=== PATIENT | female | born 1940 | race Caucasian/White ===

== ENCOUNTER 2016-09-17 15:42 | Emergency (ER) | payer OTHER ==
[~2016-09-17] VITALS: Ht 157.4 cm; Wt 77.1 kg
[~2016-09-17 15:42] MED LIST: ASPIRIN81 M1 PO; CANAGLIFLOZIN PO; CHOLESTYRAM4 GM/9 GM PO; CIPRO500 MG PO; FISH OIL500 MG PO; GLIPIZIDE10 M2 PO; GLYBURIDE AND M1 TA2 PO; ISOSORBIDE DINI30 MG PO; LANTUS100 U/ML SC; LISINOPRIL20 MG PO; LOPRESSOR50 M1 PO; LOVASTATIN20 MG PO; MERIBIN5 MG PO; METFORMIN500 MG PO; PHARMASSURE FO0.4 MG PO; SUPER B-50 COM1 EACH PO; TOPROL XL50 M1 PO; VISION VITAMIN1 EACH PO; ZOLOFT50 MG PO
[2016-09-17] MEDS ORDERED: NEURONTIN300 MG PO (15:49)
[2016-09-17] MEDS ORDERED: JANUVIA100 MG PO (15:50)
[2016-09-17] MEDS ORDERED: OYSTER SHELL C1 EAC3 PO (15:51)
[2016-09-17] MEDS ORDERED: LASIX40 MG PO (15:52)
[2016-09-17] MEDS ORDERED: PRESERVISION1 SGL PO (15:52)
[2016-09-17] MEDS ORDERED: ISOSORBIDE DINI30 MG PO (15:52)
[2016-09-17 16:29] LABS: BASO % 0.5 % (0.0-1.0); EOS # 0.2 10*3/uL (0.0-0.4); EOS % 3.5 % (1.0-4.0); HEMATOCRIT 33.5 % (37.0-47.0); HEMOGLOBIN 11.6 g/dl (12.0-16.0); LYMPH # 1.5 10*3/uL (1.3-4.4); LYMPH % 27.6 % (27.0-41.0); MEAN CELL VOLUME 90.8 fl (81.0-99.0); MEAN CORPUSCULAR HGB 31.4 pg (27.0-31.0); MEAN CORPUSCULAR HGB CONC 34.6 g/dl (33.0-37.0); MEAN PLATELET VOLUME 10.5 fl (9.6-12.3); MONO # 0.4 10*3/uL (0.1-1.0); MONO % 6.6 % (3.0-9.0); NEUT # 3.4 10*3/uL (2.3-7.9); NEUT % 61.3 % (47.0-73.0); PLATELET COUNT AUTOMATED 157 10*3/uL (130-400); RED BLOOD COUNT 3.69 10*6/uL (4.10-5.10); RED CELL DISTRI WIDTH 12.7 % (0-14.5); WHITE BLOOD COUNT 5.5 10*3/uL (4.8-10.8)
[2016-09-17 17:57] VITALS: BP 189/90
[2016-09-17] MEDS ORDERED: MOTION SICKNESS25 MG PO (18:04)
== END 2016-09-17 18:32 | disposition home or self-care (01) ==
LOC: ED 15:42
PROVIDERS: Emergency Medicine
DX: H83.02 Labyrinthitis, left ear (principal); Z90.49 Acquired absence of other specified parts of digestive tract; Z95.5 Presence of coronary angioplasty implant and graft; Z79.4 Long term (current) use of insulin; Z79.899 Other long term (current) drug therapy

== ENCOUNTER 2016-11-13 10:35 | Inpatient (IN) | payer OTHER ==
[~2016-11-13] VITALS: Ht 165.1 cm; Wt 80.1 kg
--- NOTE | ~2016-11-13 | PR ---
[place], [place] PROGRESS NOTE NAME: SOLITARIO BUSBY [facility] #: [id number] UNIT #: [id number] ROOM: 412 DOCTOR: DIXON DUBON MD BIRTHDATE: [birth year] DOS: 11/15/2016 SUBJECTIVE: The patient is feeling much better, does not have any complaints today. OBJECTIVE: VITAL SIGNS: Graphic trend shows a pressure 151/56, pulse is 67, respirations 20, temperature 97.4. LUNGS: Clear. HEART: Regular. ABDOMEN: Obese, soft. EXTREMITIES: Without any edema. LABORATORY DATA: Blood sugar was 120 this morning. Echocardiogram showed normal LV function. ASSESSMENT AND PLAN: 1. Type 2 diabetes mellitus, insulin-dependent, poorly controlled with hyperglycemia. 2. Acute kidney injury, possibly from dehydration. 3. Benign hypertension, controlled. The plan is to discharge her to home today. DIXON DUBON MD CM:PNTRANS 0823 1500 DIXON DUBON MD 11/15/16 1500 interface
--- NOTE | ~2016-11-13 | WRIGHTHP ---
[place], [place] PATIENT HISTORY AND PHYSICAL EXAM NAME: SOLITARIO BUSBY [facility] #: [id number] UNIT #: [id number] ROOM: 412 DOCTOR: DIXON DUBON MD BIRTHDATE: [birth year] DOS: 11/13/2016 HISTORY OF PRESENT ILLNESS: The patient is 75 years old, very well known to us. The patient states that about a week ago, she became extremely sick with a sore throat and cough, progressively got worse to the point that she lost her voice and her appetite became extremely poor and she has not been eating very much and has not been taking her medications regularly. The sore throat and her hoarse voice did get better, but her appetite continues to be on the poor side and her blood sugars started going up into the 500s. She also has had some urinary symptoms with increased frequency of urination and burning, but does not have any fever or chills, any chest pains, palpitations or shortness of breath. Finally, family forced her to the Emergency Room and they found out her blood sugar was 500 yesterday. PAST MEDICAL HISTORY: Significant for: 1. Type 2 diabetes mellitus, insulin-dependent. 2. Coronary artery disease with history of stent placement. 3. History of UTI hospitalization in 07/2015. 4. Benign hypertension. 5. History of back pain. 6. Mixed hyperlipidemia. MEDICATIONS ON ADMISSION: Folic acid 0.4 mg daily, Lasix 40 mg daily p.r.n., Isordil 30 daily, gabapentin 300 at bedtime, losartan 50 daily, Lopressor 50 daily, lovastatin 20 daily, meclizine 25 twice a day p.r.n. for dizziness, sertraline 50 daily, Januvia 100 daily, insulin Lantus subQ at 1800. SOCIAL HISTORY: Nonsmoker, does not use any alcohol. PHYSICAL EXAMINATION: GENERAL: She is awake and alert and oriented, quite tired looking this morning. VITAL SIGNS: Graphic trend shows that she is afebrile. Pressure is 150/62, pulse of 68, respirations 18, temperature 97.9, blood pressure on admission was 164/88. LUNGS: Diminished breath sounds. No wheezes, rales or rhonchi heard. HEART: Regular. ABDOMEN: Obese, soft, nontender. EXTREMITIES: Without any edema. LABORATORY DATA: Shows a urine which is positive for blood and bacteria, 3+ glucose, WBC count is 3.2, hemoglobin 13.2, hematocrit 38.2, platelets were 162. Glucose 446 on basic metabolic panel, BUN 25, creatinine 1.28, sodium 136, potassium 3.5, chloride 97, bicarbonate 27, magnesium 2.0. ASSESSMENT AND PLAN: 1. The patient who comes in with hyperglycemia, type 2 diabetes mellitus, poorly controlled with hyperosmolar state. IV fluids have been ordered, Lantus has been ordered. 2. Urinary tract infection. Urine culture has been sent. Blood cultures have been ordered. The patient appears to be neutropenic, most likely from [place], [place] PATIENT HISTORY AND PHYSICAL EXAM NAME: SOLITARIO BUSBY [facility] #: [id number] UNIT #: [id number] ROOM: [facility] DOCTOR: DIXON DUBON MD BIRTHDATE: [birth year] underlying infection. 3. Chronic renal failure from diabetic nephropathy with GFR 41, stage III B renal failure, will avoid metformin as well as possible reduction in the dose of the Januvia needs to be considered. Right now, we will increase the dose of the Lantus to better control the sugar. Once the blood cultures and urine cultures come back, the patient should be able to go home. DIXON DUBON MD CM:HISPHYS:PATIENT HISTORY AND PHYSICAL EXAMINATION [id number] 2 DIXON DUBON MD 11/14/16922 interface
--- NOTE | ~2016-11-13 | DS ---
[place], [place] DISCHARGE SUMMARY [facility] [id number] [facility] #: [id number] ROOM: 412 DOCTOR: DIXON DUBON MD BIRTHDATE: [birth year] DOS: 11/15/2016 HOSPITAL COURSE: The patient is very well known to us. The patient was admitted to the hospital with tiredness, weakness, extremely high blood sugars. Please see the H and P for details. The patient was admitted to [facility], was placed on IV fluids, IV antibiotics. Readjustments in medications were made. Metformin was discontinued because of rising creatinine. She developed acute kidney injury, possibly from poor p.o. intake for the last several days. IV fluids were given for that. Urinalysis was positive, but the culture was not sent. She was on Rocephin, which will be changed to Ceftin p.o. Once the medicines were changed, insulin dosage was adjusted, her blood sugars have come down and normalized. The plan therefore is to discharge her to home to be followed up as an outpatient. DISCHARGE DIAGNOSES: 1. Hyperglycemia. 2. Type 2 diabetes mellitus, poorly controlled. 3. Acute kidney injury from prerenal azotemia. 4. Mixed hyperlipidemia. 5. Benign hypertension. 6. Possible urinary tract infection. 7. Diabetic neuropathy. 8. Major depression, mild, recurrent. DISCHARGE MEDICATIONS: Metformin has been discontinued because a rising creatinine. Other medications: Lantus insulin which is increased to 25 units, Ceftin 250 twice daily for 5 days, sertraline 50 daily, gabapentin 300 at bedtime, Januvia 100 mg daily, calcium 500 daily, Isordil 30 daily, Lasix 40 daily p.r.n., PreserVision 1 capsule daily, meclizine 25 q. 6 hours p.r.n. for dizziness, Lopressor 50 daily, folic acid 0.4 daily, lovastatin 20 daily, losartan 50 daily. [place], [place] DISCHARGE SUMMARY NAME: SOLITARIO BUSBY UNIT #: [id number] ROOM: 412 DOCTOR: DIXON DUBON MD BIRTHDATE: [birth year] DIXON DUBON MD CM:WILL [id number] DIXON DUBON MD 11/15/16 1415 interface
[~2016-11-13 10:35] MED LIST changes: +JANUVIA100 MG PO; +LANTUS SOL100 UNIT/1 SQ; +LASIX40 MG PO; +MOTION SICKNESS25 MG PO; +NEURONTIN300 MG PO; +OYSTER SHELL C1 EAC3 PO; +PRESERVISION1 SGL PO
[2016-11-13 10:47] VITALS: BP 174/88
[2016-11-13 11:20] LABS: BASO % 0.9 % (0.0-1.0); EOS # 0.2 10*3/uL (0.0-0.4); EOS % 5.6 % (1.0-4.0); HEMATOCRIT 38.2 % (37.0-47.0); HEMOGLOBIN 13.2 g/dl (12.0-16.0); LYMPH # 1.2 10*3/uL (1.3-4.4); LYMPH % 36.3 % (27.0-41.0); MEAN CELL VOLUME 91.4 fl (81.0-99.0); MEAN CORPUSCULAR HGB 31.6 pg (27.0-31.0); MEAN CORPUSCULAR HGB CONC 34.6 g/dl (33.0-37.0); MEAN PLATELET VOLUME 10.6 fl (9.6-12.3); MONO # 0.4 10*3/uL (0.1-1.0); MONO % 11.8 % (3.0-9.0); NEUT # 1.5 10*3/uL (2.3-7.9); NEUT % 45.1 % (47.0-73.0); PLATELET COUNT AUTOMATED 162 10*3/uL (130-400); RED BLOOD COUNT 4.18 10*6/uL (4.10-5.10); RED CELL DISTRI WIDTH 12.7 % (0-14.5); WHITE BLOOD COUNT 3.2 10*3/uL (4.8-10.8)
[2016-11-13 11:29] LABS: BILIRUBIN NEGATIVE (NEGATIVE); BLOOD TRACE-INTACT (NEGATIVE); CLARITY CLOUDY (CLEAR); COLOR YELLOW (YELLOW); GLUCOSE 3+ (NEGATIVE); KETONE NEGATIVE (NEGATIVE); LEUKO ESTERASE NEGATIVE (NEGATIVE); NITRITE NEGATIVE (NEGATIVE); UROBILINOGEN 0.2 E.U./dl (0.2-1.0)
[2016-11-13 11:38] LABS: ALBUMIN 3.7 gm/dl (3.1-4.5); ALKALINE PHOSPHATASE 126 U/L (45-117); BUN 25 mg/dl (7-24); CHLORIDE 97 mmol/L (98-107); CREATININE 1.28 mg/dL (0.55-1.02); POTASSIUM 3.5 mmol/L (3.5-5.1); SGOT/AST 33 IU/L (3-35); SGPT/ALT 32 U/L (12-78); SODIUM 136 mmol/L (136-145); TOTAL PROTEIN 7.8 gm/dL (6.4-8.2)
[2016-11-13 11:42] LABS: TROPONIN I < 0.015 ng/ml (<0.045)
[2016-11-13 11:45] LABS: BACTERIA TRACE
[2016-11-13 12:51] VITALS: BP 184/88
[2016-11-13 13:15] VITALS: BP 171/83
[2016-11-13 13:29] VITALS: BP 171/83
--- NOTE | 2016-11-13 14:10 | NUR ---
Time: 1314 A 75 year old FEMALE admitted to under services of DIXON PEDRAZA MD. Pt. arrived via stretcher from ER. Chief complaint: JUST DOSENT FEEL WELL HALIE GRAHAM
[2016-11-13] MEDS ORDERED: Meclizine25 MG PO (14:18)
[2016-11-13] MEDS ORDERED: LOPRESSOR50 M1 PO (14:18)
[2016-11-13] MEDS ORDERED: COZAAR50 M1 PO (14:19)
[2016-11-13] MEDS ORDERED: PHARMASSURE FO0.4 MG PO (14:19)
[2016-11-13] MEDS ORDERED: LOVASTATIN20 MG PO (14:19)
--- NOTE | 2016-11-13 15:44 | NUR ---
Dr. Dennis was called cassi sykes were recieved. Stated she would address home meds in the morning.
[2016-11-13 16:00] VITALS: BP 164/75
[2016-11-13 20:00] VITALS: BP 123/58
--- NOTE | 2016-11-13 20:00 | NUR ---
PT RESTING IN BED. RESP-EASY AND REGULAR. IVF INFUSING WITH NO PROBLEM. NO C/O AT THIS TIME. CALL LIGHT IN REACH.
--- NOTE | 2016-11-13 21:45 | NUR ---
PT SITTING UP AT SIDE OF BED. RESP-EASY AND REGULAR. NO C/O AT THIS TIME. BSG-206, SEE EMAR. CALL LIGHT IN REACH.
[2016-11-14] VITALS: BP 150/62
--- NOTE | 2016-11-14 | NUR ---
PT RESTING IN BED. RESP-EASY AND REGULAR. IVF INFUSING WITH NO PROBLEM. NO C/O AT THIS TIME. CALL LIGHT IN REACH. SEE SHIFT ASSESSMENT.
--- NOTE | 2016-11-14 04:00 | NUR ---
SLEEPING IN BED. RESP-EASY AND REGULAR. CALL LIGHT IN REACH.
--- NOTE | 2016-11-14 06:00 | NUR ---
RESTING IN BED. BSG-157, SEE EMAR. NO C/O AT THIS TIME. IVF INFUSING WITH NO PROBLEM. CALL LIGHT IN REACH.
[2016-11-14 08:00] VITALS: BP 151/69
--- NOTE | 2016-11-14 08:00 | NUR ---
RESTING QUIETLY NO C/O NO DISTRESS NOTED. IV FLUIDS INFUSING. STATES SHE FEELS MUCH BETTER. SEE SHIFT ASSESSMENT.
--- NOTE | 2016-11-14 08:30 | NUR ---
Security Coordinator in to talk to patient. Patient states lives at HOME [address] with HER . There are 13 steps in the home. Physician: DR DUBON Pharmacy: [facility] health services: NONE Patient's level of ADLs: INDEPENDENT Patient has working utilities: YES DME: NONE Follow-up physician's appointment after d/c: PREFERS TO MAKE HER OWN APPT Does patient want to access PORTAL?: Discharge plan HOME. DORI AGUILAR DENIES ANY DC NEEDS
--- NOTE | 2016-11-14 11:51 | NUR ---
Received message through group social worker family would like to discuss living will. In to see patient, daughter at bedside. Explained the patient is a resident of [place] and unfortunately we do not have access to the [place] [facility]. I told her she could contact a board turner or possibly research [place] [facility] online. She stated she would look into it.
[2016-11-14 16:00] VITALS: BP 152/64
--- NOTE | 2016-11-14 19:30 | NUR ---
PATIENT SITTING ON SIDE OF BED WATCHING TV. NO NEEDS MADE. NO S/S OF DISTRESS. BED IN LOWEST POSITION, CALL LIGHT IN REACH
--- NOTE | 2016-11-14 22:20 | NUR ---
24 HR chart check completed.
--- NOTE | 2016-11-14 22:53 | NUR ---
PATIENT RESTING IN BED WITH NO S/S OF DISTRESS. RESPS EASY AND REGULAR. BED IN LOWEST POSITION, CALL LIGHT IN REACH
[2016-11-15] VITALS: BP 151/56
--- NOTE | 2016-11-15 02:27 | NUR ---
PATIENT RESTING WITH EYES CLOSED. NO S/S OF DISTRESS. RESPS EASY AND REGULAR. BED IN LOWEST POSITOIN, CALL LIGHT IN REACH
[2016-11-15 08:00] VITALS: BP 157/62
--- NOTE | 2016-11-15 08:00 | NUR ---
SITTING ON SIDE OF BED, NO C/O NO DISTRESS NOTED. DR DUBON VISITED. PT TO BE DISCHARGED TODAY. SEE SHIFT ASSESSMENT.
[2016-11-15] MEDS ORDERED: LEVEMIR100 UNIT/1 SC (08:24)
[2016-11-15] MEDS ORDERED: CEFUROXIME AXE250 MG PO (08:24)
--- NOTE | 2016-11-15 09:27 | NUR ---
DISCHARGED TO HOME WITH . INSTRUCTIONS AND PERSCRIPTIONS REVIEWED WITH PT.
== END 2016-11-15 09:27 | disposition home or self-care (01) | DRG 637 ==
LOC: ED 10:35 → EDHOLD 12:47 → 4E 12:47
PROVIDERS: Emergency Medicine; ADMIT Internal Medicine
DX: E11.65 Type 2 diabetes mellitus with hyperglycemia (principal); E11.00 Type 2 diabetes mellitus with hyperosmolarity without nonketotic hyperglycemic-hyperosmolar coma (NKHHC); N17.9 Acute kidney failure, unspecified; N39.0 Urinary tract infection, site not specified; F33.0 Major depressive disorder, recurrent, mild; E11.22 Type 2 diabetes mellitus with diabetic chronic kidney disease; I25.10 Atherosclerotic heart disease of native coronary artery without angina pectoris; E11.40 Type 2 diabetes mellitus with diabetic neuropathy, unspecified; E78.2 Mixed hyperlipidemia; I12.9 Hypertensive chronic kidney disease with stage 1 through stage 4 chronic kidney disease, or unspecified chronic kidney disease; N18.3 Chronic kidney disease, stage 3 (moderate); Z79.4 Long term (current) use of insulin; Z79.899 Other long term (current) drug therapy; Z90.710 Acquired absence of both cervix and uterus; Z82.3 Family history of stroke; Z82.49 Family history of ischemic heart disease and other diseases of the circulatory system; Z95.9 Presence of cardiac and vascular implant and graft, unspecified

== ENCOUNTER → 2017-11-28 | Outpatient (CLI) | payer MEDICARE ==
[~2017-11-28] MED LIST changes: +CEFUROXIME AXE250 MG PO; +COZAAR50 M1 PO; +LEVEMIR100 UNIT/1 SC; +Meclizine25 MG PO
== END | disposition home or self-care (01) ==
LOC: MAMMO 07:41
DX: Z12.31 Encounter for screening mammogram for malignant neoplasm of breast (principal); R92.1 Mammographic calcification found on diagnostic imaging of breast

== ENCOUNTER 2018-03-14 13:49 | Inpatient (IN) | payer MEDICARE ==
--- NOTE | ~2018-03-14 | DS ---
[place], [place] DISCHARGE SUMMARY NAME: SOLITARIO BUSBY [facility] #: [id number] UNIT #: [id number] ROOM: 504 DOCTOR: DIXON DUBON MD BIRTHDATE: [birth year] DOS: 03/16/2018 DIAGNOSES: 1. Acute kidney injury from dehydration and hypotension. 2. Diabetic nephropathy. 3. Benign hypertension. 4. Adult failure to thrive. 5. Type 2 diabetes mellitus, poorly controlled. 6. Mixed hyperlipidemia. 7. Major depression. 8. Possible urinary tract infection, urine culture not available at the time of discharge. MEDICATION ON DISCHARGE: Ceftin 250 twice daily for 5 days, sertraline 50 daily, gabapentin 300 at bedtime, calcium 500 mg daily, isosorbide 30 b.i.d., PreserVision 1 tablet daily, folic acid 0.4 mg daily, lovastatin 20 daily, losartan 50 daily, insulin glargine 30 units q.p.m., glipizide 10 b.i.d. Januvia 100 mg daily. HOSPITAL COURSE: The patient is 77 years old, comes in with increased weakness, tiredness, inability to eat, difficulty to ambulate. The patient's states that she has been sick for days prior to being seen in the office. She had increased frequency of urination, but did not seek help for that. She has history of multiple UTIs and diagnosed with possible sepsis and UTI and dehydration, was admitted. After admission, routine labs were done, it showed the patient did have acute kidney injury, possibly from poor p.o. intake and hypotension and ATN. Some of her antihypertensives were held and the patient was started on IV fluids. With IV fluids, the dehydration has improved. She has good urine output. Her energy has come back and she is able to ambulate to the bathroom without any problems. PT/OT did see her and did not feel that she would from therapy at home. Blood sugars are controlled in the low 200s now. Her hemoglobin A1c is extremely high, most likely from poor control as an outpatient. The patient is stable. The plan is to discharge her to home today, to follow up as an outpatient. Possibilities that she did have an underlying UTI, but unfortunately the urine culture was done late and so we do not have the results at the time of dictation. Antibiotics have, however, been ordered and will be continued as an outpatient. [place], [place] DISCHARGE SUMMARY NAME: SOLITARIO BUSBY UNIT #: [id number] ROOM: 504 DOCTOR: DIXON DUBON MD BIRTHDATE: [birth year] DIXON DUBON MD CM:DISCHARG [id number] DIXON DUBON MD 03/16/18 1328 interface
--- NOTE | ~2018-03-14 | PR ---
[place], [place] PROGRESS NOTE [facility] [id number] UN[facility] #: [id number] ROOM: 504 DOCTOR: DIXON DUBON MD BIRTHDATE: [birth year] DOS: SUBJECTIVE: The patient is feeling much better. She has more energy. Her appetite is improving. OBJECTIVE: VITAL SIGNS: Graphic trend shows a pressure of 150/61, pulse of 60, respirations 20, temperature 97.7. LUNGS: Clear. HEART: Regular. ABDOMEN: Obese, soft, nontender. EXTREMITIES: Without any edema. ASSESSMENT AND PLAN: 1. Adult failure to thrive, improved strength velasquez, malaise and has corrected, and PT states that she does not need any rehab. 2. Acute kidney injury, possibly from diabetic nephropathy. Avoid nephrotoxic agents. 3. Type 2 diabetes mellitus, poorly controlled. Blood sugars have improved. DIXON DUBON MD CM:PNTRANS [id number] DIXON DUBON MD 03/17/18 0555 interface
--- NOTE | ~2018-03-14 | WRIGHTHP ---
[place], [place] PATIENT HISTORY AND PHYSICAL EXAM NAME: SOLITARIO BUSBY [facility] #: [id number] UNIT #: [id number] ROOM: 504 DOCTOR: DIXON DUBON MD BIRTHDATE: [birth year] DOS: HISTORY OF PRESENT ILLNESS: The patient is 77 years old, very well known to us. The patient has been increasingly weak at home, unable to eat and unable to walk and was being confused as per the family members, so they brought her to the Emergency Room. Her blood sugars were poorly controlled in the 300s-400s. She denied having any chest pains or palpitations. Did have increased frequency of urination and dysuria, but did not have any fever or chills. She denies having any emesis, but she has been nauseous. PAST MEDICAL HISTORY: Significant for: 1. Last hospitalization in November 2016 with acute kidney injury. 2. Type 2 diabetes mellitus, poorly controlled. 3. Benign hypertension. 4. Mixed hyperlipidemia. 5. Major depression, mild, recurrent. 6. Diabetic neuropathy. 7. History of UTI. MEDICATIONS: She is currently on are Lantus 30 units, folic acid 0.4 mg, vitamin D with calcium 500 daily, gabapentin 300 at bedtime, glipizide 10 b.i.d., isosorbide 30 b.i.d., losartan 50 daily, lovastatin 20 daily, metoprolol 50 daily, sertraline 50 daily. SOCIAL HISTORY: Nonsmoker. Does not use any alcohol. PHYSICAL EXAMINATION: GENERAL: She is awake and alert, very listless and lethargic, tries to answer questions appropriately, but quite weak. VITAL SIGNS: Blood pressure is 166/90, pulse of 72, respirations 18, temperature 98.0. LUNGS: Diminished breath sounds. No wheezes, rales, rhonchi heard. HEART: Regular. ABDOMEN: Obese, soft, nontender. EXTREMITIES: Without any edema. ASSESSMENT AND PLAN: 1. Acute kidney injury resulting in from poor p.o. intake as well as hypotension and acute tubular necrosis. The patient is placed on IV fluids. We will hold off on antihypertensives. We will reevaluate and restart medications slowly. 2. Adult failure to thrive. The patient will be ordered PT/OT consultation and possible SNF placement. 3. Type 2 diabetes mellitus, insulin-dependent, poorly controlled. The patient will have blood sugars checked every 4 hours and coverage scale started, and depending on her blood sugar readings, we will restart medication. She does have a hemoglobin A1c, which is in the 9.2 range, which means that the sugars are uncontrolled, mostly from noncompliance and poor insight to medical problems. [place], [place] PATIENT HISTORY AND PHYSICAL EXAM NAME: SOLITARIO BUSBY UNIT #: [id number] ROOM: 504 DOCTOR: DIXON DUBON MD BIRTHDATE: [birth year] DIXON DUBON MD CM:HISPHYS:PATIENT HISTORY AND PHYSICAL EXAMINATION 0840 [id number] DIXON DUBON MD 03/16/18 0109 interface
[2018-03-14 14:20] VITALS: BP 155/67
--- NOTE | 2018-03-14 14:20 | NUR ---
A 77, admitted to , under the services of DIXON Pedraza MD with a diagnosis of UTI,SEPSIS. Chief complaint is GENERALIZED WEAKNESS. Patient arrived via wheel chair from [place]. Monitor applied. Initial assessment completed. Vital signs taken and recorded. DIXON PEDRAZA MD notified of admission to the unit. Orders received. See assessment for past medical history, medications and allergies. Patient and/or family oriented to unit. [facility] visitation policy reviewed. Clothing/patient valuable form completed. SHELBY TREJO
[2018-03-14 14:57] LABS: BASO % 0.6 % (0.0-1.0); EOS # 0.1 10*3/uL (0.0-0.4); HEMATOCRIT 41.1 % (37.0-47.0); HEMOGLOBIN 14.1 g/dl (12.0-16.0); LYMPH # 1.3 10*3/uL (1.3-4.4); LYMPH % 25.9 % (27.0-41.0); MEAN CELL VOLUME 89.2 fl (81.0-99.0); MEAN CORPUSCULAR HGB 30.6 pg (27.0-31.0); MEAN CORPUSCULAR HGB CONC 34.3 g/dl (33.0-37.0); MEAN PLATELET VOLUME 10.4 fl (9.6-12.3); MONO # 0.4 10*3/uL (0.1-1.0); MONO % 7.9 % (3.0-9.0); NEUT # 3.1 10*3/uL (2.3-7.9); NEUT % 63.4 % (47.0-73.0); PLATELET COUNT AUTOMATED 154 10*3/uL (130-400); RED BLOOD COUNT 4.61 10*6/uL (4.10-5.10); RED CELL DISTRI WIDTH 12.2 % (0-14.5)
[2018-03-14 15:25] LABS: ALBUMIN 3.9 gm/dl (3.1-4.5); CREATININE 1.27 mg/dL (0.55-1.02); POTASSIUM 3.8 mmol/L (3.5-5.1); TOTAL PROTEIN 8.2 gm/dL (6.4-8.2)
[2018-03-14 16:00] VITALS: BP 158/69
--- NOTE | 2018-03-14 16:35 | NUR ---
MEDS RECONCILED WITH PT AND MED CLAIM HISTORY.DR JAGDISH TEMPLETON.
[2018-03-14] MEDS ORDERED: GLIPIZIDE10 M2 PO (16:42)
[2018-03-14] MEDS ORDERED: LANTUS SOL100 UNIT/1 SC (16:42)
[2018-03-14] MEDS ORDERED: METOPROLOL SUCC50 M1 PO (16:43)
--- NOTE | 2018-03-14 18:20 | NUR ---
NOTIFIED DR DUBON OF LAB RESULTS,ORDERS RECIEVED.
[2018-03-14 20:00] VITALS: BP 166/90
[2018-03-15] VITALS: BP 125/63
[2018-03-15 06:41] LABS: CREATININE 1.15 mg/dL (0.55-1.02); POTASSIUM 3.4 mmol/L (3.5-5.1)
--- NOTE | 2018-03-15 09:00 | NUR ---
Town Planner in to talk to patient. Patient states lives at home with her . There are 13 steps in the home. Physician: Dr. Anastacia Dennis Pharmacy: [facility] [place] Home health services: none Patient's level of ADLs: INDEPENDENT Patient has working utilities: yes DME: none Follow-up physician's appointment after d/c: she prefers to make her own follow up appt after discharge Does patient want to access PORTAL?: no Discharge plan discussed with patient. She lives at home with her . She is independent in her ADLs and ambulation. Discussed home health care services and she denies any home needs at this time. When medically stable she will be discharged to home. RAMAN SIMMS
[2018-03-15 12:00] VITALS: BP 184/84
--- NOTE | 2018-03-15 14:20 | NUR ---
PHYSICAL THERAPY PAtient report she is 100 % (I) and requires no PT. Will d/c PT as patient requestes. Thank you for this referral. Laureen Albarran,PT
[2018-03-15 16:00] VITALS: BP 121/95
[2018-03-15 20:00] VITALS: BP 139/55
[2018-03-16] VITALS: BP 150/61
[2018-03-16 08:00] VITALS: BP 122/80
[2018-03-16 08:30] LABS: CREATININE 1.22 mg/dL (0.55-1.02)
[2018-03-16] MEDS ORDERED: CEFUROXIME AXE250 MG PO (08:44)
[2018-03-16] MEDS ORDERED: JANUVIA100 MG PO (08:44)
[2018-03-16 10:55] LABS: BILIRUBIN NEGATIVE (NEGATIVE); BLOOD NEGATIVE (NEGATIVE); CLARITY SL CLOUDY (CLEAR); COLOR YELLOW (YELLOW); GLUCOSE 1+ (NEGATIVE); KETONE NEGATIVE (NEGATIVE); LEUKO ESTERASE TRACE (NEGATIVE); NITRITE NEGATIVE (NEGATIVE); PH 5.5 (5.0-9.0); UROBILINOGEN 0.2 E.U./dl (0.2-1.0)
[2018-03-16 11:25] LABS: BACTERIA TRACE; WBC 21-30 wbc/hpf (0-5)
--- NOTE | 2018-03-16 11:34 | NUR ---
PT DISCHARGED AT THIS TIME. IV REMOVED AND PRESSURE DRESSING APPLIED. HEART MONITOR RETURNED TO FLOOR. VERBALIZED UNDERSTANDING OF DISCHARE INSTRUCTIONS.
== END 2018-03-16 11:35 | disposition home or self-care (01) | DRG 871 ==
LOC: 5E 13:49
PROVIDERS: ADMIT Internal Medicine
DX: A41.9 Sepsis, unspecified organism (principal); N17.0 Acute kidney failure with tubular necrosis; I95.9 Hypotension, unspecified; N39.0 Urinary tract infection, site not specified; E11.65 Type 2 diabetes mellitus with hyperglycemia; R62.7 Adult failure to thrive; I10 Essential (primary) hypertension; F32.9 Major depressive disorder, single episode, unspecified; E78.2 Mixed hyperlipidemia; E86.0 Dehydration; E11.40 Type 2 diabetes mellitus with diabetic neuropathy, unspecified; Z87.440 Personal history of urinary (tract) infections

== ENCOUNTER → 2018-09-25 | Outpatient (CLI) | payer MEDICARE ==
[~2018-09-25] MED LIST changes: +LANTUS SOL100 UNIT/1 SC; +METOPROLOL SUCC50 M1 PO
== END | disposition home or self-care (01) ==
LOC: US 11:46
DX: I70.293 Other atherosclerosis of native arteries of extremities, bilateral legs (principal); I10 Essential (primary) hypertension; E11.9 Type 2 diabetes mellitus without complications

== ENCOUNTER 2018-12-04 01:56 | Emergency (ER) | payer MEDICARE ==
[~2018-12-04] VITALS: Ht 157.4 cm; Wt 78.0 kg
[2018-12-04 01:57] VITALS: BP 185/78
== END 2018-12-04 04:21 | disposition home or self-care (01) ==
LOC: ED 01:56
DX: I83.892 Varicose veins of left lower extremity with other complications (principal); E11.9 Type 2 diabetes mellitus without complications; K21.9 Gastro-esophageal reflux disease without esophagitis; I25.10 Atherosclerotic heart disease of native coronary artery without angina pectoris; I10 Essential (primary) hypertension; Z79.4 Long term (current) use of insulin; Z79.899 Other long term (current) drug therapy

== ENCOUNTER 2019-05-24 14:28 | Inpatient (IN) | payer OTHER ==
[~2019-05-24] VITALS: Ht 157.4 cm; Wt 81.4 kg
[2019-05-24 09:00] VITALS: BP 146/78
[2019-05-24 14:34] VITALS: BP 152/67
[2019-05-24 15:06] LABS: BASO % 0.8 % (0.0-1.0); EOS # 0.2 10*3/uL (0.0-0.4); EOS % 2.9 % (1.0-4.0); HEMATOCRIT 37.3 % (37.0-47.0); LYMPH # 1.2 10*3/uL (1.3-4.4); LYMPH % 23.4 % (27.0-41.0); MEAN CELL VOLUME 88.2 fl (81.0-99.0); MEAN CORPUSCULAR HGB 30.7 pg (27.0-31.0); MEAN CORPUSCULAR HGB CONC 34.9 g/dl (33.0-37.0); MEAN PLATELET VOLUME 10.9 fl (9.6-12.3); MONO # 0.4 10*3/uL (0.1-1.0); MONO % 7.9 % (3.0-9.0); NEUT # 3.4 10*3/uL (2.3-7.9); NEUT % 64.6 % (47.0-73.0); PLATELET COUNT AUTOMATED 150 10*3/uL (130-400); RED BLOOD COUNT 4.23 10*6/uL (4.10-5.10); RED CELL DISTRI WIDTH 12.5 % (0-14.5); WHITE BLOOD COUNT 5.2 10*3/uL (4.8-10.8)
[2019-05-24 15:17] LABS: ACT PARTIAL THROMBO TIME 27.3 SECONDS (20.0-32.1)
--- NOTE | 2019-05-24 15:18 | NUR ---
THE PT WAS GIVEN A SPECIMAN CUP FOR A URINE SAMPLE
[2019-05-24 15:22] LABS: ALBUMIN 3.5 gm/dl (3.1-4.5); ALKALINE PHOSPHATASE 116 U/L (45-117); BUN 40 mg/dl (7-24); CHLORIDE 101 mmol/L (98-107); POTASSIUM 4.8 mmol/L (3.5-5.1); SGOT/AST 15 IU/L (3-35); SGPT/ALT 23 U/L (12-78); SODIUM 133 mmol/L (136-145); TOTAL PROTEIN 6.9 gm/dL (6.4-8.2)
[2019-05-24 15:25] LABS: TROPONIN I < 0.015 ng/ml (<0.045)
[2019-05-24 16:04] LABS: CLARITY SL CLOUDY (CLEAR); COLOR YELLOW (YELLOW)
[2019-05-24 16:05] LABS: BILIRUBIN NEGATIVE (NEGATIVE); BLOOD NEGATIVE (NEGATIVE); GLUCOSE 3+ (NEGATIVE); KETONE NEGATIVE (NEGATIVE); LEUKO ESTERASE TRACE (NEGATIVE); NITRITE POSITIVE (NEGATIVE); SPECIFIC GRAVITY 1.015 (1.005-1.030); UROBILINOGEN 0.2 E.U./dl (0.2-1.0)
[2019-05-24 16:06] LABS: WBC 41-50 wbc/hpf (0-5)
[2019-05-24 16:07] LABS: BACTERIA 3+
--- NOTE | 2019-05-24 17:49 | NUR ---
I CALLED TO GIVE REPORT BUT THE PHONE WENT UNANSWERED
--- NOTE | 2019-05-24 17:50 | NUR ---
THE RECIEVING NURSE IMMEDIATLEY RETURN THE CALL
[2019-05-24 18:00] VITALS: BP 176/59
--- NOTE | 2019-05-24 18:00 | NUR ---
A 78, admitted to 5E, under the services of DIXON Pedraza MD with a diagnosis of UTI AND HYPERGLYCEMIA. Chief complaint is SHORTNESS OF BREATH. Patient arrived via wheel chair from ER. Monitor applied. Initial assessment completed. Vital signs taken and recorded. DIXON PEDRAZA MD notified of admission to the unit. Orders received. See assessment for past medical history, medications and allergies. Patient and/or family oriented to unit. [facility] visitation policy reviewed. Clothing/patient valuable form completed. EVI DILLON
[2019-05-24] MEDS ORDERED: CLOPIDOGREL75 MG PO (18:27)
[2019-05-24] MEDS ORDERED: Synthroid,Levo25 MCG PO (18:28)
[2019-05-24] MEDS ORDERED: OXYBUTYNIN5 MG PO (18:28)
[2019-05-24] MEDS ORDERED: MECLIZINE HYD12.5 MG PO (18:29)
[2019-05-24] MEDS ORDERED: TRADJENTA5 M1 PO (18:29)
--- NOTE | 2019-05-24 18:30 | NUR ---
MED REC UPDATED PER PT.
[2019-05-24 18:32] VITALS: BP 162/78
--- NOTE | 2019-05-24 19:01 | NUR ---
BLOOD SUGAR 340 AT THIS TIME.
--- NOTE | 2019-05-24 19:53 | NUR ---
OBTAINED ADMISSION ORDERS FROM DR DUBON.
[2019-05-24 20:00] VITALS: BP 172/79
--- NOTE | 2019-05-24 20:09 | NUR ---
EXPLAINED TO PT. THAT DR. DUBON ORDER HER IV FLUIDS & THAT HER BLOOD SUGAR WOULD BE CHECKED EVERY 6 HOURS; PT. VERBALIZED UNDERSTANDING. ASKING FOR SOMETHING TO EAT. TOOK PATIENT BOX LUNCH & WATER. CALL LIGHT WITHIN REACH; NO DISTRESS NOTED.
--- NOTE | 2019-05-24 23:41 | NUR ---
BLOOD SUGAR 378; COVERAGE PER EMAR.
[2019-05-25] VITALS: BP 166/64
[2019-05-25 06:16] LABS: BASO % 0.7 % (0.0-1.0); EOS # 0.2 10*3/uL (0.0-0.4); EOS % 3.8 % (1.0-4.0); HEMOGLOBIN 12.8 g/dl (12.0-16.0); LYMPH # 1.8 10*3/uL (1.3-4.4); LYMPH % 32.9 % (27.0-41.0); MEAN CELL VOLUME 88.6 fl (81.0-99.0); MEAN CORPUSCULAR HGB 29.8 pg (27.0-31.0); MEAN CORPUSCULAR HGB CONC 33.7 g/dl (33.0-37.0); MEAN PLATELET VOLUME 11.2 fl (9.6-12.3); MONO # 0.4 10*3/uL (0.1-1.0); MONO % 7.5 % (3.0-9.0); NEUT % 54.9 % (47.0-73.0); PLATELET COUNT AUTOMATED 157 10*3/uL (130-400); RED BLOOD COUNT 4.29 10*6/uL (4.10-5.10); RED CELL DISTRI WIDTH 12.7 % (0-14.5); WHITE BLOOD COUNT 5.5 10*3/uL (4.8-10.8)
--- NOTE | 2019-05-25 06:30 | NUR ---
BLOOD SUGAR 218; COVERAGE PER EMAR.
[2019-05-25 06:43] LABS: CREATININE 1.29 mg/dL (0.55-1.02); POTASSIUM 4.2 mmol/L (3.5-5.1)
--- NOTE | 2019-05-25 07:00 | NUR ---
ASSUMED CARE FOR PT AT THIS TIME. PT SITTING ON THE SIDE OF HER BED. NO COMPLAINTS AT THIS TIME. RESPS EASY AND REGULAR. ASSESSMENT COMPLETE. CALL LIGHT WITHIN REACH. WILL CONTINUE TO MONITOR.
[2019-05-25 08:00] VITALS: BP 164/74
--- NOTE | 2019-05-25 08:20 | NUR ---
LOSARTAN AND METOPROLOL GIVEN EARLY DUE TO BP 164/74. WILL RECHECK.
[2019-05-25 09:08] LABS: BILIRUBIN NEGATIVE (NEGATIVE); BLOOD 1+ (NEGATIVE); CLARITY SL CLOUDY (CLEAR); COLOR YELLOW (YELLOW); GLUCOSE 3+ (NEGATIVE); KETONE NEGATIVE (NEGATIVE); LEUKO ESTERASE 2+ (NEGATIVE); NITRITE NEGATIVE (NEGATIVE); SPECIFIC GRAVITY 1.025 (1.005-1.030); UROBILINOGEN 0.2 E.U./dl (0.2-1.0); WBC 41-50 wbc/hpf (0-5)
[2019-05-25 09:09] LABS: BACTERIA TRACE; MUCOUS TRACE
[2019-05-25 12:00] VITALS: BP 120/57
[2019-05-25 16:00] VITALS: BP 135/45
[2019-05-25 20:00] VITALS: BP 141/52
--- NOTE | 2019-05-25 20:16 | NUR ---
24 HR chart check completed.
--- NOTE | 2019-05-25 20:45 | NUR ---
RESTING IN BED WITH NO ACUTE DISTRESS NOTED. RESPIRATIONS EASY. LUNGS DIMINISHED, CLEAR. PULSE OX 96% RA. DENIES DYSURIA. CALL LIGHT WITHIN REACH. NO VOICED COMPLAINTS
[2019-05-26] VITALS: BP 152/51
--- NOTE | 2019-05-26 | NUR ---
SLEEPING. NO S/S DISTRESS. RESPIRATIONS EASY. VSS. CALL LIGHT WITHIN REACH
--- NOTE | 2019-05-26 06:00 | NUR ---
slept throughout night with no distress noted. respirations easy. call light within reach. no voiced complaints this shift
[2019-05-26 08:00] VITALS: BP 161/65
--- NOTE | 2019-05-26 09:00 | NUR ---
Assembly Worker in to talk to patient. Patient states lives at home with her . There are 20 steps in the home. Physician: Dr. Anastacia Dennis Pharmacy: [facility] Home health services: none Patient's level of ADLs: INDEPENDENT Patient has working utilities: yes DME: none Follow-up physician's appointment after d/c: she prefers to make her own follow up appt after discharge Does patient want to access PORTAL?: no Discharge plan discussed with patient. She is sitting on the edge of her bed without distress noted. She lives at home with her . She is independent in her ADLs and ambulation. Discussed home health care services and she denies any home needs. When medically stable she will be discharged to home. She states her will provide transportation on discharge. RAMAN SIMMS
[2019-05-26 12:00] VITALS: BP 163/49
[2019-05-26 16:00] VITALS: BP 136/78
--- NOTE | 2019-05-26 19:20 | NUR ---
24 HR chart check completed.
[2019-05-26 20:00] VITALS: BP 131/46
--- NOTE | 2019-05-26 21:00 | NUR ---
RESTING IN BED WITH NO DISTRESS NOTED. RESPIRATIONS EASY. LUNGS DIMINISHED, CLEAR. PULSE OX 95% RA. CALL LIGHT WITHIN REACH. NO VOICED COMPLAINTS
[2019-05-27] VITALS: BP 146/55
--- NOTE | 2019-05-27 | NUR ---
SLEEPING, AWAKENS EASILY. RESPIRATIONS EASY. VSS. CALL LIGHT WITHIN REACH. NO VOICED COMPLAINTS
--- NOTE | 2019-05-27 06:00 | NUR ---
SLEPT THROUGHOUT NIGHT WITH NO DISTRESS NOTED. RESPIRATIONS EASY. CALL LIGHT WITHIN REACH. NO VOICED COMPLAINTS THIS SHIFT
[2019-05-27 07:13] LABS: BASO % 0.8 % (0.0-1.0); EOS # 0.2 10*3/uL (0.0-0.4); EOS % 4.8 % (1.0-4.0); HEMATOCRIT 34.3 % (37.0-47.0); HEMOGLOBIN 11.4 g/dl (12.0-16.0); LYMPH # 1.8 10*3/uL (1.3-4.4); MEAN CELL VOLUME 90.5 fl (81.0-99.0); MEAN CORPUSCULAR HGB 30.1 pg (27.0-31.0); MEAN CORPUSCULAR HGB CONC 33.2 g/dl (33.0-37.0); MEAN PLATELET VOLUME 11.3 fl (9.6-12.3); MONO # 0.5 10*3/uL (0.1-1.0); MONO % 10.9 % (3.0-9.0); NEUT # 2.2 10*3/uL (2.3-7.9); NEUT % 46.1 % (47.0-73.0); PLATELET COUNT AUTOMATED 140 10*3/uL (130-400); RED BLOOD COUNT 3.79 10*6/uL (4.10-5.10); RED CELL DISTRI WIDTH 12.8 % (0-14.5); WHITE BLOOD COUNT 4.8 10*3/uL (4.8-10.8)
[2019-05-27 07:48] LABS: POTASSIUM 3.9 mmol/L (3.5-5.1)
[2019-05-27 07:49] LABS: CREATININE 1.17 mg/dL (0.55-1.02)
[2019-05-27 08:00] VITALS: BP 163/63
[2019-05-27] MEDS ORDERED: Lantus SC (08:29)
[2019-05-27] MEDS ORDERED: CEFUROXIME AXE250 MG PO (08:30)
--- NOTE | 2019-05-27 09:00 | NUR ---
Lapel Padder in to see patient. She is sitting on the edge of her bed eating breakfast without distress noted. She states she is getting to go home today. Discussed any home needs and she denies any. She is awaiting her discharge paperwork.
--- NOTE | 2019-05-27 10:10 | NUR ---
DC TO HOME
== END 2019-05-27 10:10 | disposition home or self-care (01) | DRG 682 ==
LOC: ED 14:28 → 4E 16:59 → EDHOLD 16:59 → 5E 17:30 → 4E 05-25 19:24
PROVIDERS: Physician Assistant; ADMIT Internal Medicine
DX: N17.0 Acute kidney failure with tubular necrosis (principal); E11.00 Type 2 diabetes mellitus with hyperosmolarity without nonketotic hyperglycemic-hyperosmolar coma (NKHHC); N39.0 Urinary tract infection, site not specified; F32.0 Major depressive disorder, single episode, mild; E11.65 Type 2 diabetes mellitus with hyperglycemia; I12.9 Hypertensive chronic kidney disease with stage 1 through stage 4 chronic kidney disease, or unspecified chronic kidney disease; N18.9 Chronic kidney disease, unspecified; E11.22 Type 2 diabetes mellitus with diabetic chronic kidney disease; B96.1 Klebsiella pneumoniae [K. pneumoniae] as the cause of diseases classified elsewhere; R62.7 Adult failure to thrive; E78.2 Mixed hyperlipidemia; Z87.01 Personal history of pneumonia (recurrent); Z90.710 Acquired absence of both cervix and uterus; Z90.49 Acquired absence of other specified parts of digestive tract; Z95.5 Presence of coronary angioplasty implant and graft; Z82.49 Family history of ischemic heart disease and other diseases of the circulatory system; Z82.3 Family history of stroke; Z68.32 Body mass index [BMI] 32.0-32.9, adult

== ENCOUNTER → 2019-09-23 | Outpatient (CLI) | payer OTHER ==
[~2019-09-23] MED LIST changes: +CLOPIDOGREL75 MG PO; +Lantus SC; +MECLIZINE HYD12.5 MG PO; +OXYBUTYNIN5 MG PO; +Synthroid,Levo25 MCG PO; +TRADJENTA5 M1 PO
[2019-09-23 08:31] LABS: BASO % 0.9 % (0.0-1.0); EOS # 0.3 10*3/uL (0.0-0.4); EOS % 5.4 % (1.0-4.0); HEMATOCRIT 35.2 % (37.0-47.0); LYMPH # 1.3 10*3/uL (1.3-4.4); LYMPH % 28.1 % (27.0-41.0); MEAN CELL VOLUME 91.9 fl (81.0-99.0); MEAN CORPUSCULAR HGB CONC 32.7 g/dl (33.0-37.0); MEAN PLATELET VOLUME 10.8 fl (9.6-12.3); MONO # 0.5 10*3/uL (0.1-1.0); MONO % 10.7 % (3.0-9.0); NEUT # 2.6 10*3/uL (2.3-7.9); NEUT % 54.7 % (47.0-73.0); PLATELET COUNT AUTOMATED 141 10*3/uL (130-400); RED BLOOD COUNT 3.83 10*6/uL (4.10-5.10); RED CELL DISTRI WIDTH 12.8 % (0-14.5); WHITE BLOOD COUNT 4.7 10*3/uL (4.8-10.8)
[2019-09-23 08:51] LABS: ALBUMIN 3.6 gm/dl (3.1-4.5); CREATININE 1.31 mg/dL (0.55-1.02); POTASSIUM 4.4 mmol/L (3.5-5.1); TOTAL PROTEIN 7.2 gm/dL (6.4-8.2)
[2019-09-23 08:56] LABS: THYROID STIM HORMONE (HS) 2.94 uIU/ml (0.358-4.75)
== END | disposition home or self-care (01) ==
LOC: CT 07:32
PROVIDERS: Internal Medicine
DX: Z00.00 Encounter for general adult medical examination without abnormal findings (principal); I10 Essential (primary) hypertension; E55.9 Vitamin D deficiency, unspecified; R16.1 Splenomegaly, not elsewhere classified; N28.1 Cyst of kidney, acquired; N20.0 Calculus of kidney; I70.0 Atherosclerosis of aorta; K57.90 Diverticulosis of intestine, part unspecified, without perforation or abscess without bleeding; K42.9 Umbilical hernia without obstruction or gangrene; M47.814 Spondylosis without myelopathy or radiculopathy, thoracic region; M47.816 Spondylosis without myelopathy or radiculopathy, lumbar region; Z90.49 Acquired absence of other specified parts of digestive tract; Z90.710 Acquired absence of both cervix and uterus

== ENCOUNTER 2019-10-11 10:38 | Emergency (ER) | payer OTHER ==
[~2019-10-11] VITALS: Ht 157.4 cm; Wt 77.1 kg
[2019-10-11 10:45] VITALS: BP 108/81
== END 2019-10-11 13:28 | disposition home or self-care (01) ==
LOC: ED 10:38
DX: S39.012A Strain of muscle, fascia and tendon of lower back, initial encounter (principal); I10 Essential (primary) hypertension; I25.10 Atherosclerotic heart disease of native coronary artery without angina pectoris; K21.9 Gastro-esophageal reflux disease without esophagitis; E11.9 Type 2 diabetes mellitus without complications; Z79.4 Long term (current) use of insulin; Z79.899 Other long term (current) drug therapy; X58.XXXA Exposure to other specified factors, initial encounter; Y93.89 Activity, other specified; Y92.89 Other specified places as the place of occurrence of the external cause; Y99.8 Other external cause status

== ENCOUNTER → 2019-10-16 | Outpatient (CLI) | payer OTHER | END | disposition home or self-care (01) | LOC: RAD 12:55 | DX: M54.6 Pain in thoracic spine (principal) ==

== ENCOUNTER 2019-10-24 02:32 | Emergency (ER) | payer OTHER ==
[~2019-10-24] VITALS: Ht 160 cm; Wt 77.1 kg
[2019-10-24 06:49] VITALS: BP 131/54
== END 2019-10-24 07:20 | disposition home or self-care (01) ==
LOC: ED 02:32
DX: S29.012A Strain of muscle and tendon of back wall of thorax, initial encounter (principal); Z79.899 Other long term (current) drug therapy; W18.39XA Other fall on same level, initial encounter; Y93.89 Activity, other specified; Y92.89 Other specified places as the place of occurrence of the external cause; Y99.8 Other external cause status

== ENCOUNTER 2019-10-24 15:39 | Emergency (ER) | payer OTHER ==
[2019-10-24 17:23] VITALS: BP 138/74
== END 2019-10-24 18:00 | disposition short-term general hospital (02) ==
LOC: ED 15:39
DX: S22.000A Wedge compression fracture of unspecified thoracic vertebra, initial encounter for closed fracture (principal); I25.10 Atherosclerotic heart disease of native coronary artery without angina pectoris; I10 Essential (primary) hypertension; K21.9 Gastro-esophageal reflux disease without esophagitis; E11.9 Type 2 diabetes mellitus without complications; Z79.899 Other long term (current) drug therapy; X58.XXXA Exposure to other specified factors, initial encounter; Y93.89 Activity, other specified; Y92.89 Other specified places as the place of occurrence of the external cause; Y99.8 Other external cause status

== ENCOUNTER 2019-11-25 11:10 | Observation (INO) | payer OTHER ==
[~2019-11-25] VITALS: Ht 157.4 cm; Wt 73.9 kg
[2019-11-25 11:18] VITALS: BP 140/80
[2019-11-25 13:24] LABS: BASO % 0.3 % (0.0-1.0); EOS % 0.6 % (1.0-4.0); HEMATOCRIT 34.4 % (37.0-47.0); LYMPH # 0.9 10*3/uL (1.3-4.4); LYMPH % 25.3 % (27.0-41.0); MEAN CELL VOLUME 89.1 fl (81.0-99.0); MEAN CORPUSCULAR HGB 29.8 pg (27.0-31.0); MEAN CORPUSCULAR HGB CONC 33.4 g/dl (33.0-37.0); MEAN PLATELET VOLUME 10.5 fl (9.6-12.3); MONO # 0.5 10*3/uL (0.1-1.0); NEUT % 59.2 % (47.0-73.0); PLATELET COUNT AUTOMATED 89 10*3/uL (130-400); RED BLOOD COUNT 3.86 10*6/uL (4.10-5.10); RED CELL DISTRI WIDTH 13.5 % (0-14.5); WHITE BLOOD COUNT 3.4 10*3/uL (4.8-10.8)
[2019-11-25 13:38] LABS: ALBUMIN 3.4 gm/dl (3.1-4.5); CREATININE 1.72 mg/dL (0.55-1.02); POTASSIUM 4.5 mmol/L (3.5-5.1); TOTAL PROTEIN 7.4 gm/dL (6.4-8.2)
[2019-11-25 14:26] LABS: BILIRUBIN NEGATIVE; BLOOD 3+ (NEGATIVE); CLARITY CLOUDY (CLEAR); COLOR YELLOW (YELLOW); GLUCOSE NEGATIVE; KETONE NEGATIVE; NITRITE POSITIVE (NEGATIVE); SPECIFIC GRAVITY 1.015 (1.001-1.030)
[2019-11-25 14:27] LABS: BACTERIA 4+; LEUKO ESTERASE 2+ (NEGATIVE); RBC TNTC rbc/hpf (0-2); WBC 41-50 wbc/hpf (0-5)
--- NOTE | 2019-11-25 16:10 | NUR ---
Time: 1609 A 78 year old FEMALE admitted to 5E under services of DR. JAGDISH EVANS,DIXON. Pt. arrived via stretcher from ER. Chief complaint: N/V, COUGH. LYNDSEY KELLEY
[2019-11-25] MEDS ORDERED: LANTUS SOL100 UNIT/1 SQ (17:41)
[2019-11-25 18:00] VITALS: BP 177/65
[2019-11-25 20:00] VITALS: BP 133/75
--- NOTE | 2019-11-25 22:48 | NUR ---
DR BERNAL CALLED AND NOTIFIED OF PT C/O BACK PAIN AND REQUESTING TYLENOL. NEW ORDERS REC'D.
--- NOTE | 2019-11-25 22:57 | NUR ---
PATIENT STATES THAT SHE IS HAVING NAUSEA AT THIS TIME AND WOULD NOT LIKE TO TAKE ANY TYLENOL IN FEAR THAT SHE MAY THROW IT UP. DENYING NEED FOR ZOFRAN. WILL REASSESS.
[2019-11-26] VITALS: BP 142/56
--- NOTE | 2019-11-26 | NUR ---
PATIENT STATES SHE IS FEELING BETTER AT THIS TIME & HAS NO COMPLAINTS AND NO NEEDS. BED IN LOW, LOCKED POS, CALL LIGHT WITHIN REACH.
--- NOTE | 2019-11-26 02:02 | NUR ---
PATIENT SLEEPING, NO S/S DISTRESS, RESPS EASY AND NONLABORED ON ROOM AIR. BED IN LOWEST, LOCKED POS, CALL LIGHT IN REACH
--- NOTE | 2019-11-26 05:54 | NUR ---
TYLENOL GIVEN PER REQUEST FOR C/O BACK PAIN
[2019-11-26 05:56] LABS: CREATININE 1.24 mg/dL (0.55-1.02); POTASSIUM 3.7 mmol/L (3.5-5.1)
[2019-11-26 06:47] LABS: EOS % 0.7 % (1.0-4.0); HEMATOCRIT 32.6 % (37.0-47.0); LYMPH % 33.9 % (27.0-41.0); MEAN CELL VOLUME 91.6 fl (81.0-99.0); MEAN CORPUSCULAR HGB 29.8 pg (27.0-31.0); MEAN CORPUSCULAR HGB CONC 32.5 g/dl (33.0-37.0); MEAN PLATELET VOLUME 11.7 fl (9.6-12.3); MONO # 0.4 10*3/uL (0.1-1.0); MONO % 12.2 % (3.0-9.0); NEUT # 1.5 10*3/uL (2.3-7.9); NEUT % 52.5 % (47.0-73.0); PLATELET COUNT AUTOMATED 94 10*3/uL (130-400); RED BLOOD COUNT 3.56 10*6/uL (4.10-5.10); RED CELL DISTRI WIDTH 13.4 % (0-14.5); WHITE BLOOD COUNT 2.9 10*3/uL (4.8-10.8)
[2019-11-26 08:00] VITALS: BP 135/57
--- NOTE | 2019-11-26 08:22 | NUR ---
PHYSICAL THERAPY PT screen received, Pt from home admitted with UTI. Please contact PT if patient has functional decline below baseline. Alex Durán SPT Fiona Pradhan PT
--- NOTE | 2019-11-26 08:24 | NUR ---
Nursing screen received and chart reviewed. Patient admitted for UTI. If patient has a decline in ADLs, transfers, or functional mobility, please send OT orders. Thank you. Christine Stewart, OTR/L
--- NOTE | 2019-11-26 08:27 | NUR ---
PT RESTING IN BED. NO DISTRESS NOTED. WILL MONITOR
--- NOTE | 2019-11-26 08:30 | NUR ---
Instructor Dancing in to talk to patient. Patient states lives at home with her and their family checking in on them. There are 13 steps in the home. Physician: Dr. Anastacia Dennis [facility]acy: [facility] Home health services: none Patient's level of ADLs: minimal assistance Patient has working utilities: yes DME: cane Follow-up physician's appointment after d/c: she prefers to make her own follow up appt after discharge Does patient want to access PORTAL?: no Discharge plan discussed with patient. She is standing at the window trying to open the window blind. Window blind raised for patient to look outside. She lives at home with her . She is independent in her ADLs and ambulates outside with a cane. Discussed home health care services and she declines. CM will continue to follow for any discharge planning needs. When medically stable she will be discharged to home. She states her will provide transportation on discharge. RAMAN SIMMS
--- NOTE | 2019-11-26 10:29 | NUR ---
In the multidisciplinary discharge planning meeting [facility] stated patient is a current patient of theirs. SW reached to patient via telephone and she had PT/OT last week with them but told them not to return as she wasn't feeling good. Dr. Dennis notified. New order received for resumption of [facility]. Faxed resumption order.
[2019-11-26 12:00] VITALS: BP 170/62
[2019-11-26 16:00] VITALS: BP 168/64
--- NOTE | 2019-11-26 19:00 | NUR ---
REPORT OBTAINED FROM PREVIOUS RN.
--- NOTE | 2019-11-26 19:29 | NUR ---
CHART CHECK COMPLETE.
[2019-11-26 20:00] VITALS: BP 154/56
--- NOTE | 2019-11-26 21:32 | NUR ---
BEDSIDE GLUCOSE 212. PATIENT REFUSED HUMALOG. CALL LIGHT IS WITHIN REACH.
[2019-11-27] VITALS: BP 152/57
--- NOTE | 2019-11-27 01:04 | NUR ---
PATIENT SLEEPING WITH EASY AND REGULAR RESPERS ON ROOM AIR. CALL LIGHT IS WITHIN REACH.
[2019-11-27 05:50] LABS: CREATININE 1.08 mg/dL (0.55-1.02); POTASSIUM 3.5 mmol/L (3.5-5.1)
[2019-11-27 06:18] LABS: EOS % 1.6 % (1.0-4.0); HEMATOCRIT 31.5 % (37.0-47.0); LYMPH % 39.8 % (27.0-41.0); MEAN CELL VOLUME 90.5 fl (81.0-99.0); MEAN CORPUSCULAR HGB 29.9 pg (27.0-31.0); MEAN PLATELET VOLUME 11.7 fl (9.6-12.3); MONO # 0.3 10*3/uL (0.1-1.0); MONO % 13.9 % (3.0-9.0); NEUT # 1.1 10*3/uL (2.3-7.9); NEUT % 43.9 % (47.0-73.0); PLATELET COUNT AUTOMATED 100 10*3/uL (130-400); RED BLOOD COUNT 3.48 10*6/uL (4.10-5.10); RED CELL DISTRI WIDTH 13.5 % (0-14.5); WHITE BLOOD COUNT 2.4 10*3/uL (4.8-10.8)
--- NOTE | 2019-11-27 06:32 | NUR ---
BLOOD GLUCOSE 69 FROM [facility]. ORANGE JUICE, PEANUT BUTTER AND ALEJO CRACKERS GIVEN. WILL CONTINUE TO MONITOR, CALL LIGHT IS WITHIN REACH.
[2019-11-27 08:00] VITALS: BP 146/54
[2019-11-27] MEDS ORDERED: CIPRO500 MG PO (08:14)
--- NOTE | 2019-11-27 09:52 | NUR ---
Faxed discharge instructions to [facility]
--- NOTE | 2019-11-27 10:20 | NUR ---
Discharge instructions reviewed with patient/family. Patient receptive and verbalizes understanding. Follow-up care arranged. Written instructions given to patient/family. WOUND PHOTO TAKEN OF RIGHT LOWER EXTREMITY. HEPLOCK DISCONTINUED. PRESCRIPTION GIVEN TO PATIENT. TAKEN OFF FLOOR VIA WHEELCHAIR AND PICKED UP BY DAUGHTER. MIKE GARCIA
--- NOTE | 2019-11-27 10:24 | NUR ---
PHYSICAL THERAPY Per medical team morning this AM pt is/has been discharged no further PT indicated at this time. Fiona Pradhan PT
== END 2019-11-27 10:20 | disposition home or self-care (01) ==
LOC: ED 11:10 → 5E 15:11 → EDHOLD 15:11 → 5E 15:40
PROVIDERS: Emergency Medicine; ADMIT Internal Medicine; ATTEND Internal Medicine
DX: N39.0 Urinary tract infection, site not specified (principal); N17.0 Acute kidney failure with tubular necrosis; I12.9 Hypertensive chronic kidney disease with stage 1 through stage 4 chronic kidney disease, or unspecified chronic kidney disease; N18.3 Chronic kidney disease, stage 3 (moderate); E11.22 Type 2 diabetes mellitus with diabetic chronic kidney disease; E78.5 Hyperlipidemia, unspecified; F32.9 Major depressive disorder, single episode, unspecified